=== PATIENT | female | born 1975 | race Caucasian/White ===

== ENCOUNTER 2020-09-17 02:54 | Emergency (ER) | payer MEDICARE, OTHER ==
[~2020-09-17] VITALS: Ht 165.1 cm; Wt 75.0 kg
[~2020-09-17 02:54] MED LIST: CARB200T6 PO; CLON-595 PO; DIVA-80 PO; GABA-1181 PO; PARO10TA89 PO; PRAV20TA4 PO
[2020-09-17 02:57] VITALS: BP 142/61
[2020-09-17] MEDS ORDERED: CITA-144 PO (03:10)
[2020-09-17] MEDS ORDERED: LIDOCAINE 2% 5 ML JELLY TP ONE (04:30)
== END 2020-09-17 06:05 | disposition home or self-care (01) ==
LOC: EMS 02:55
DX: S01.01XA Laceration without foreign body of scalp, initial encounter (principal); E78.00 Pure hypercholesterolemia, unspecified; Z86.69 Personal history of other diseases of the nervous system and sense organs; W18.09XA Striking against other object with subsequent fall, initial encounter; Y93.89 Activity, other specified; Y92.89 Other specified places as the place of occurrence of the external cause; Y99.8 Other external cause status
CPT/HCPCS: 12002; 70450; 99284

== ENCOUNTER 2020-09-20 13:08 | Emergency (ER) | payer MEDICARE, OTHER ==
[~2020-09-20] VITALS: Ht 162.6 cm; Wt 72.7 kg
[~2020-09-20 13:08] MED LIST changes: +CITA-144 PO
[2020-09-20 13:11] VITALS: BP 102/72
== END 2020-09-20 14:32 | disposition home or self-care (01) ==
LOC: EMS 13:13
DX: S01.01XD Laceration without foreign body of scalp, subsequent encounter (principal); G80.9 Cerebral palsy, unspecified; E78.00 Pure hypercholesterolemia, unspecified; X58.XXXD Exposure to other specified factors, subsequent encounter
CPT/HCPCS: 99281; Z7502

== ENCOUNTER 2021-04-14 08:42 | Emergency (ER) | payer MEDICARE, OTHER ==
[~2021-04-14] VITALS: Ht 154.9 cm; Wt 62.7 kg
[2021-04-14] MEDS ORDERED: LIDOCAINE 2% 5 ML JELLY TP ONE (10:00)
[2021-04-14 11:30] VITALS: BP 105/64
== END 2021-04-14 11:50 | disposition home or self-care (01) ==
LOC: EMS 08:56
DX: S01.01XA Laceration without foreign body of scalp, initial encounter (principal); W19.XXXA Unspecified fall, initial encounter; Y93.89 Activity, other specified; Y92.89 Other specified places as the place of occurrence of the external cause; Y99.8 Other external cause status
CPT/HCPCS: 12002; 70450; 99284

== ENCOUNTER 2023-05-25 10:19 | Emergency (ER) | payer MEDICARE, OTHER ==
[~2023-05-25] VITALS: Ht 157.5 cm; Wt 63.6 kg
[~2023-05-25 10:19] MED LIST changes: +CARB-92 PO; -CARB200T6 PO; -DIVA-80 PO; +DIVA500T53 PO
[2023-05-25 10:24] VITALS: BP 119/74; PULSE 88; RESP 18; TEMP 98.3
== END 2023-05-25 13:47 | disposition home or self-care (01) ==
LOC: EMS 10:19
DX: M79.671 Pain in right foot (principal)
CPT/HCPCS: 99283